=== PATIENT | female | born 1980 | race Caucasian/White ===

== ENCOUNTER 2020-11-04 19:30 | Emergency (ER) | payer SELFPAY ==
[~2020-11-04] VITALS: Ht 157.5 cm; Wt 68.0 kg
[2020-11-04 20:18] VITALS: BP 114/65
[2020-11-04] MEDS ORDERED: FLUORESCEIN SODIUM 1MG/STRIP BOTHEYE ONE (21:45)
[2020-11-04] MEDS ORDERED: BALANCED SALT IRRIG SOLN 15ML IR ONE (21:45)
[2020-11-04] MEDS ORDERED: CIPR2.5D13 LEFTEYE (23:26)
== END 2020-11-04 23:39 | disposition home or self-care (01) ==
LOC: ER 19:30
DX: S05.92XA Unspecified injury of left eye and orbit, initial encounter (principal); T54.91XA Toxic effect of unspecified corrosive substance, accidental (unintentional), initial encounter; Y92.018 Other place in single-family (private) house as the place of occurrence of the external cause; Y93.89 Activity, other specified; Y99.8 Other external cause status
CPT/HCPCS: 99282